=== PATIENT | female | born 1950 | race African-American/Black ===

== ENCOUNTER 2023-08-21 12:11 | Emergency (ER) | payer MEDICARE, OTHER ==
[~2023-08-21] VITALS: Ht 147.3 cm; Wt 165.0 kg
[2023-08-21 12:49] VITALS: O2SAT 96
[2023-08-21 14:27] VITALS: BP_DIAS 83
[2023-08-21] MEDS: HYDROCODONE/ACETAMINOPHEN 5/325MG TABLET PO PRN (14:27)
[2023-08-21] MEDS: KETOROLAC 30MG/ML VIAL IM ONE (14:27)
[2023-08-21] MEDS ORDERED: NAPR500T7 MT (15:03)
[2023-08-21] MEDS ORDERED: T3 PO (15:03)
[2023-08-21] MEDS ORDERED: GABA-529 MT (15:06)
[2023-08-21 15:14] VITALS: BP_SYST 130; PULSE 98; RESP 18; TEMP 97.8
== END 2023-08-21 15:15 | disposition home or self-care (01) ==
LOC: ER 12:56
DX: M25.552 Pain in left hip (principal); I10 Essential (primary) hypertension; E11.9 Type 2 diabetes mellitus without complications; Z98.890 Other specified postprocedural states
CPT/HCPCS: 99283; 73502; 96372; J1885